=== PATIENT | male | born 1975 | race Caucasian/White ===

== ENCOUNTER 2020-04-22 11:04 | Observation (INO) | payer BC ==
[2020-04-22 12:01] LABS: #Lymphocytes 1.2 thou/uL (1.20-3.40); #Monocytes 0.4 thou/uL (0.11-0.59); #Neutrophils 3.4 thou/uL (1.40-6.50); %Basophils 0.2 % (0.0-1.0); %Eosinophils 0.5 % (0.0-10.0); %Lymphocytes 23.2 % (21.0-51.0); %Monocytes 8.3 % (0.0-10.0); %Neutrophils 67.8 % (42.0-75.0); Hemoglobin 14.3 g/dL (14.0-18.0); Mean Corpuscular Hemoglobin 27.5 pg (27.0-31.0); Mean Corpuscular Volume 85.8 fL (78.0-98.0); Mean Platelet Volume 7.6 fL (7.4-10.4); Platelet Count 158 thou/uL (130-400); RBC Distribution Width 11.7 % (11.5-14.5); Red Blood Cell (RBC) Count 5.22 mill/uL (4.70-6.10)
[2020-04-22] MEDS ORDERED: Ketorolac Tromethamine 30 MG/ML VIAL ONE (12:04)
--- NOTE | 2020-04-22 12:08 | RAD ---
Portable frontal chest radiograph: 04/22/2020 COMPARISON: None HISTORY: Fever FINDINGS: There is a suggestion of a rounded density within the medial left base which may signify an underlying pulmonary nodule, measuring 2.8 cm in transverse dimension. There is elevation of the right hemidiaphragm. No focal consolidation or alveolar edema. IMPRESSION: Findings suspicious for a medial left basilar nodule. PA and lateral imaging of the chest suggested for further assessment. Results called to Dr. Ramos 11:58 AM 04/22/2020
[2020-04-22 12:17] LABS: ALT (SGPT) 26 U/L (8-55); AST (SGOT) 24 U/L (5-34); Albumin 4.1 g/dL (3.5-5.0); Alkaline Phosphatase 36 U/L (40-110); Anion Gap 14 mmol/L (10-20); BUN (Urea Nitrogen) 11 mg/dL (8.9-20.6); Bilirubin, Total 0.4 mg/dL (0.2-1.2); Calc. Creatinine Clearance 0 mL/min (70-130); Calcium 8.9 mg/dL (7.8-10.44); Carbon Dioxide 23 mmol/L (22-29); Chloride 103 mmol/L (98-107); Globulin 3.7 g/dL (2.4-3.5); Glucose 143 mg/dL (70-105); Potassium 4.2 mmol/L (3.5-5.1); Protein, Total 7.8 g/dL (6.0-8.3); Sodium 136 mmol/L (136-145)
[2020-04-22] MEDS ORDERED: Morphine 4 MG/ML VIAL ONE (13:23)
[2020-04-22] MEDS ORDERED: diphenhydrAMINE 50 MG/ML VIAL ONE (13:24)
[2020-04-22] MEDS ORDERED: Metoclopramide HCl 10 MG/2 ML VIAL ONE (13:24)
[2020-04-22] MEDS ORDERED: Metoclopramide 10 MG/10 ML UDCUP ONE (13:24)
--- NOTE | 2020-04-22 13:43 | CT ---
CT BRAIN WITHOUT CONTRAST: HISTORY: Headache, fever, vomiting, stiff neck. Negative for COVID-19. FINDINGS: No evidence of acute infarct, hemorrhage, midline shift, or abnormal extraaxial fluid collections are seen. The ventricular size is normal and the basilar cisterns are patent. The bony calvarium is in tact. The visualized paranasal sinuses and mastoid air cells are well aerated. IMPRESSION: No CT evidence of acute intracranial process. POS: AH
--- NOTE | 2020-04-22 16:08 | RAD ---
Lumbar puncture with fluoroscopic guidance: 04/22/2020 HISTORY: Headache, clinical concern for meningitis FINDINGS: Informed consent obtained prior to the procedure. Security Attendant frontal radiograph demonstrates intact lumbar pedicles. Patient was placed on the fluoroscopic table in the oblique prone position and the skin overlying the L3-4 level was prepped and draped in normal sterile fashion and anesthetized with 1% buffered lidocaine. With intermittent fluoroscopic gu idance, a 22-gauge spinal needle is advanced into the thecal sac and removal of the stylet yields clear cerebrospinal fluid. Opening pressure is normal. Approximately 5-6 cc of clear CSF was obtained and sent to the laboratory for assessment. Needle was removed. Patient tolerated the procedure well. Exposure data: 0.8 minutes of fluoroscopic time, 257.6 mcg/sq m IMPRESSION: Successful lumbar puncture with fluoroscopic guidance as above.
[2020-04-22 16:22] LABS: Color Of CSF Supernatant COLORLESS (Colorless); Tube # 2; Unspun CSF Color COLORLESS (Colorless)
[2020-04-22 16:33] LABS: CSF, Glucose 85 mg/dl (40-70); CSF, Protein 53 mg/dL (15-40)
[2020-04-22] MEDS ORDERED: Magnesium 2 GM/50 ML BAG (IN WATER) ONE (19:47)
[2020-04-22] MEDS ORDERED: methylPREDNISolone Sod Succ/PF 125 MG/2 ML VIAL ONE (19:47)
[2020-04-22] MEDS ORDERED: Ondansetron PF 4 MG/2 ML Vial IVP PRN (20:20)
[2020-04-22] MEDS ORDERED: Calcium Carbonate 500 MG ChewTAB PO PRN (20:20)
[2020-04-22] MEDS ORDERED: HYDROcodone/Acetaminophen 7.5/325 mg Tablet PO PRN (20:20)
[2020-04-22] MEDS ORDERED: Acetaminophen 650 MG Suppository PR PRN (20:20)
[2020-04-22] MEDS ORDERED: Acetaminophen 325 MG TAB PO PRN (20:20)
[2020-04-22] MEDS ORDERED: Morphine 2 MG/ML VIAL SLOW IVP PRN (20:20)
--- NOTE | 2020-04-22 20:24 | PDOC.HHP ---
Hospitalist HPI - History of Present Illness headache fever History of Present Illness: Case of an 44y/o male with a pmhx of DM who comes to hospital due to headache and fever. patient states he was on his usual state of health until about a week ago when he started with headache fever myalgias neck stiffness and nausea. States that today was feeling worse for which decided to come to hospital for evaluation. He is concerned about possibly having meningitis since he had it before in the late 90s while he was in the and states this feels exactly the same. He has been tested for Covid 3 times in the last week and have all been negative. Most recently he was tested on Monday at the respiratory clinic. hospitalist was called for further evaluation and management Hospitalist ROS - Review of Systems All other systems reviewed; all pertinent +/- noted in HPI/Subj Hospitalist History - Past Surgical History Past Surgical History: reports: no pertinent history - Family History Family History: reports: no pertinent history - Social History Smoking Status: Former smoker Alcohol: reports: None Drugs: reports: none Living Situation: With Family - Exam General Appearance: ill appearing Eye: PERRL, anicteric sclera ENT: normocephalic atraumatic, no oropharyngeal lesions Neck: supple, symmetric, no JVD Heart: RRR, no murmur, no gallops Respiratory: CTAB, no wheezes, no rales Gastrointestinal: soft, non-tender, non-distended Extremities: no cyanosis, no clubbing, no edema Skin: normal turgor, no lesions Neurological: cranial nerve grossly intact Musculoskeletal: normal tone, normal strength Psychiatric: normal affect, normal behavior, A&O x 3 Hospitalist Results - Labs Result Diagrams: 04/22/20 11:22 04/22/20 11:22 Lab results: WBC 5.0 thou/uL (4.8-10.8) 04/22/20 11:22 Hgb 14.3 g/dL (14.0-18.0) 04/22/20 11:22 Hct 44.9 % (42.0-52.0) 04/22/20 11:22 MCV 85.8 fL (78.0-98.0) 04/22/20 11:22 Plt Count 158 thou/uL (130-400) 04/22/20 11:22 Neutrophils % 67.8 % (42.0-75.0) 04/22/20 11:22 Sodium 136 mmol/L (136-145) 04/22/20 11:22 Potassium 4.2 mmol/L (3.5-5.1) 04/22/20 11:22 Chloride 103 mmol/L (98-107) 04/22/20 11:22 Carbon Dioxide 23 mmol/L (22-29) 04/22/20 11:22 BUN 11 mg/dL (8.9-20.6) 04/22/20 11:22 Creatinine 1.13 mg/dL (0.7-1.3) 04/22/20 11:22 Glucose 143 mg/dL (70-105) H 04/22/20 11:22 Lactic Acid 1.2 mmol/L (0.5-2.2) 04/22/20 11:22 Calcium 8.9 mg/dL (7.8-10.44) 04/22/20 11:22 Total Bilirubin 0.4 mg/dL (0.2-1.2) 04/22/20 11:22 AST 24 U/L (5-34) 04/22/20 11:22 ALT 26 U/L (8-55) 04/22/20 11:22 Alkaline Phosphatase 36 U/L (40-110) L 04/22/20 11:22 Serum Total Protein 7.8 g/dL (6.0-8.3) 04/22/20 11:22 Albumin 4.1 g/dL (3.5-5.0) 04/22/20 11:22 Hospitalist H&P A/P - Problem (1) Meningitis Code(s): G03.9 - MENINGITIS, UNSPECIFIED Status: Acute (2) Diabetes Code(s): E11.9 - TYPE 2 DIABETES MELLITUS WITHOUT COMPLICATIONS Status: Acute (3) Nausea & vomiting Code(s): R11.2 - NAUSEA WITH VOMITING, UNSPECIFIED Status: Acute (4) Headache Code(s): R51.9 - HEADACHE, UNSPECIFIED Status: Acute - Plan Plan: 44y/o male w the state pmx who present to hospital for evaluation and meningitis meningitis - has symptoms concerning for meningits - LP was attemted at the ED, were unsuccesful, LP was done by IR - when i was notified of admission LP results were not available, ED personal stated they were delayed sending cultures and labs of LP after it was taken - insufficent information at this time to differentiate between viral vs bacterial - will cover with rocephin + vanc + acyclovir - ID consulted - f/u LP results - f/u cultures - pain management DM - ac + ss n/v - symptomatic tx prn
[2020-04-22 20:53] LABS: CSF Source CSF; Clarity Clear (Clear); Tube # 4
[2020-04-22] MEDS ORDERED: cefTRIAXone\\ROCEPHIN 2 GM VIAL ONE (20:53)
[2020-04-22 22:13] VITALS: BMI 45.9
[2020-04-22] MEDS: HYDROcodone/Acetaminophen 7.5/325 mg Tablet PO PRN (22:24)
[2020-04-23] MEDS ORDERED: Dextrose 5% in Water 1,000 ML IV PRN (00:16)
[2020-04-23] MEDS ORDERED: Dextrose 50% Abboject 50 ML SYRINGE SLOW IVP PRN (00:16)
[2020-04-23] MEDS: Acyclovir Sodium 730 MG in Sodium Chloride 0.9% 250 ML 250 ML IVPB SCH ×3 (00:28→16:00)
[2020-04-23] MEDS: HYDROcodone/Acetaminophen 7.5/325 mg Tablet PO PRN ×2 (05:48→16:19)
[2020-04-23 06:01] LABS: ALT (SGPT) 26 U/L (8-55); AST (SGOT) 23 U/L (5-34); Albumin 3.6 g/dL (3.5-5.0); Alkaline Phosphatase 29 U/L (40-110); Anion Gap 13 mmol/L (10-20); BUN (Urea Nitrogen) 11 mg/dL (8.9-20.6); Bilirubin, Total 0.3 mg/dL (0.2-1.2); Calc. Creatinine Clearance 206 mL/min (70-130); Carbon Dioxide 20 mmol/L (22-29); Chloride 107 mmol/L (98-107); Globulin 3.1 g/dL (2.4-3.5); Glucose 258 mg/dL (70-105); Potassium 4.8 mmol/L (3.5-5.1); Protein, Total 6.7 g/dL (6.0-8.3); Sodium 135 mmol/L (136-145)
[2020-04-23 06:07] LABS: Band 10 % (5-11); Hemoglobin 13.1 g/dL (14.0-18.0); Hypochromia SLIGHT = 6-15 cells (100X) (0-5/hpf); Lymphocytes 12 % (21-51); MDiff Complete? YES; Mean Corpuscular HGB CONC 32.5 g/dL (32.0-36.0); Mean Corpuscular Hemoglobin 28.3 pg (27.0-31.0); Mean Platelet Volume 7.7 fL (7.4-10.4); Neutrophil 76 % (42-75); Platelet Count 140 thou/uL (130-400); Platelet Morphology Comment Appears Adequate; RBC Distribution Width 11.6 % (11.5-14.5); Reactive Lymphocytes 2 % (0-10); Red Blood Cell (RBC) Count 4.62 mill/uL (4.70-6.10); White Blood Cell (WBC) Count 2.9 thou/uL (4.8-10.8)
[2020-04-23] MEDS: HumaLOG 300 UNITS/3 ML VIAL SC PRN ×2 (06:33→11:47)
[2020-04-23] MEDS ORDERED: Enoxaparin Sodium 40 MG/0.4 ML SYRINGE SC SCH (09:00)
[2020-04-23] MEDS: Ondansetron ODT 4 MG TAB PO PRN ×2 (09:03→16:48)
[2020-04-23 16:18] VITALS: BP 118/75; TEMP 98
[2020-04-23 18:13] LABS: SARS-CoV-2 IgG Ab Non-Reactive (NonReactive); SARS-CoV-2 IgG Index 0.02 S/CO (< 1.40)
--- NOTE | 2020-04-23 18:42 | CON ---
DATE OF CONSULTATION: 04/23/2020 REASON FOR CONSULTATION: Headaches. HISTORY OF PRESENT ILLNESS: A 44-year-old with history of type 2 diabetes, obesity, and a 7-day history of fever, myalgias, and headaches. He has been tested 3 times for SARS-CoV-2 with the 1st one was a rapid test, which was negative; the other 2 were PCRs, both negative. The more recent one was on the . He had a spinal tap, which was fairly normal except for mild elevation of protein. Still has a mild headache in the left periorbital region. Cough intermittently and reportedly had some drops in his saturations while he was in the emergency room earlier, a little bit anorectic. No abdominal pain or diarrhea. No genitourinary symptoms. No joint symptoms. No skin disorder. No neurological symptoms. PAST MEDICAL HISTORY: 1. Type 2 diabetes. 2. Obesity. ALLERGIES: NONE. MEDICATIONS: 1. Metformin. 2. Zofran. SOCIAL HISTORY: Former smoker. . He works in the [place] [employer] [facility]. CURRENT MEDICATIONS: 1. Acyclovir. 2. Ceftriaxone. 3. Enoxaparin. 4. Ondansetron. 5. Vancomycin. PHYSICAL EXAMINATION: VITAL SIGNS: T-max 101.7 and he is now 97.8, heart rate 71, respiratory rate 18, and O2 saturation 94 on room air and he was 95 on room air when examined him. GENERAL: He does not appear in distress, a little bit affected by his illness, but is alert. SKIN: Normal. There is no lymphadenopathy. HEENT: Ocular movements conjugate. Sclerae white. Pupils are equal. Oral cavity normal. NECK: Supple. LUNGS: Symmetric. Clear breath sounds. HEART: S1 and S2. Regular rate. ABDOMEN: Soft, not distended or tender. No ascites. No bladder distention. EXTREMITIES: No joint inflammatory activity. Moves extremities equally. NEUROLOGIC: Cognitive function appears to be intact. LABORATORY DATA: CSF with 18 rbc's, 0 wbc, protein 53. White cell count 5.0 and 2.9, lymphocytopenia. Creatinine 0.96 and sodium 135. Liver profile normal. Albumin 3.6. Brain CT showed no acute intracranial process. Chest x-ray, possible nodule in the left basilar region. ASSESSMENT: New onset of fever for the past 7 days with myalgias and headaches, fairly normal CSF except for mild elevation in protein, cough, and some intermittent drops in the O2 saturations. DISCUSSION: The differential diagnosis includes SARS-CoV-2 infection despite 2 negative results. Meningitis has been effectively ruled out. The small nodule in the lung on chest x-ray needs to be further evaluated down the road with a CT scan. I would at right now advise checking his antibody levels before discharge and then follow up the results tomorrow for counseling the patient regarding measures of protection to prevent further transmission of the virus if it turns out to have positive antibodies, so in the meantime, he would have to remain quarantine until antibody levels are back. Since he is at around 7 days, he may not have any formed antibodies yet. Other possibilities are less likely. Job ID: [id number]
[2020-04-23] MEDS ORDERED: cefTRIAXone\\ROCEPHIN 2 GM in Sodium Chloride 0.9% 100 ML IVPB SCH (20:00)
--- NOTE | 2020-04-23 22:02 | DIS ---
DATE OF ADMISSION: 04/22/2020 DATE OF DISCHARGE: 04/23/2020 DISCHARGE DIAGNOSES: 1. Viral syndrome. 2. Headache. 3. Nausea and vomiting, improved. 4. Diabetes mellitus type 2. CONSULTATIONS: Dr. Gresham with Infectious Disease Service. PERTINENT LABORATORY AND X-RAY FINDINGS: Creatinine ranged between 0.96 to 1.13. Lactic acid level 1.2. CBC showed a white blood cell count ranging between 2.9 to 5.0, hemoglobin ranged between 13.1 to 14.3. CSF sample dated 04/22/2020, showed 18 rbc's and 0 wbc's. Glucose 85, total protein 53. Blood cultures x2 dated 04/22/2020, showed no growth to date. CSF culture dated 04/22/2020, showed no growth at [address] of the brain without contrast dated 04/22/2020, showed no acute intracranial process. Portable chest x-ray dated 04/22/2020, showed questionable medial left basilar nodule. Recommend outpatient followup. HOSPITAL COURSE: The patient was observed on the medical floor after initially presenting with fever and headache with associated nausea and vomiting. The patient underwent general evaluation including CSF evaluation after concern for potential meningitis with negative CSF results. The patient did receive empiric IV Rocephin and vancomycin in addition to acyclovir, pending CSF evaluation. The patient also underwent COVID-19 testing, which was negative. The patient received general supportive management including IV fluids and antiemetics with overall stabilization and improvement in symptoms. CT imaging of the brain was performed showing no acute intracranial process and the patient was ruled out for bacterial meningitis. Likely, the patient's presentation is secondary to viral syndrome with recommendations for general supportive management. I have examined the patient at the time of discharge and discussed followup instructions. The patient verbalizes understanding and agreement, ready for discharge on 04/23/2020. DISCHARGE MEDICATIONS: 1. Toradol 10 mg p.o. q.6 hours p.r.n. headache and fever. 2. Metformin 500 mg p.o. b.i.d. 3. Zofran 4 mg p.o. q.6 hours p.r.n. FOLLOWUP: The patient may follow up with his primary care provider within 7 days of discharge. CONDITION ON DISCHARGE: Stable. ACTIVITY: Ad-carlos. DIET: ADA. CODE STATUS: Full. DISPOSITION: To home, 04/23/2020. Job ID: [id number]
--- NOTE | 2020-04-25 11:11 | EKG ---
Test Reason : Blood Pressure : / mmHG Vent. Rate : 095 BPM Atrial Rate : 095 BPM P-R Int : 148 ms QRS Dur : 092 ms QT Int : 348 ms P-R-T Axes : 045 032 031 degrees QTc Int : 437 ms Normal sinus rhythm Possible Left atrial enlargement Borderline ECG Confirmed by BALDEMAR VIRGEN DO ([id number]), editor managing director KAYLEE KIM ([id number] on 04/25/2020 11:11:34 AM Referred By: Confirmed By:BALDEMAR VIRGEN DO
== END 2020-04-23 17:20 | disposition home or self-care (01) ==
LOC: ERS 11:04 → SJJU 20:20
PROVIDERS: ADMIT Internal Medicine; ATTEND Internal Medicine
PROC: 009U3ZX Drainage of Spinal Canal, Percutaneous Approach, Diagnostic (ICD-10-PCS; principal; 2020-04-23)
DX: B34.9 Viral infection, unspecified (principal); E11.9 Type 2 diabetes mellitus without complications; E66.9 Obesity, unspecified; R91.1 Solitary pulmonary nodule; Z68.42 Body mass index [BMI] 45.0-49.9, adult; Z79.84 Long term (current) use of oral hypoglycemic drugs; Z87.891 Personal history of nicotine dependence
CPT/HCPCS: 36415; 36416; 62270; 70450; 71045; 80053; 82945; 83605; 84157; 85007; 85025; 85027; 86769; 87040; 87070; 87205; 89051; 90471; 90732; 93005; 94760; 96365; 96366; 96367; 96372; 96375; G0009; G0378; J0133; J0696; J1200; J1650; J1885; J2270; J2765; J2930; J3370; J3475; J7030; J7050; Q0162

== ENCOUNTER 2020-04-24 09:53 | Emergency (ER) | payer BC ==
[2020-04-24] MEDS ORDERED: Fentanyl 100 MCG/2 ML VIAL ONE (10:43)
[2020-04-24] MEDS ORDERED: Metoclopramide HCl 10 MG/2 ML VIAL ONE (10:43)
[2020-04-24] MEDS ORDERED: diphenhydrAMINE 50 MG/ML VIAL ONE (10:43)
[2020-04-24] MEDS ORDERED: Ketorolac Tromethamine 30 MG/ML VIAL ONE (10:43)
[2020-04-24] MEDS ORDERED: Dexamethasone 4 mg/ml Vial ONE (10:43)
[2020-04-24 10:51] LABS: #Monocytes 0.4 thou/uL (0.11-0.59); #Neutrophils 7.4 thou/uL (1.40-6.50); %Eosinophils 0.2 % (0.0-10.0); %Lymphocytes 20.3 % (21.0-51.0); %Monocytes 3.7 % (0.0-10.0); %Neutrophils 75.7 % (42.0-75.0); Hemoglobin 14.4 g/dL (14.0-18.0); Mean Corpuscular HGB CONC 33.7 g/dL (32.0-36.0); Mean Corpuscular Hemoglobin 29.2 pg (27.0-31.0); Mean Corpuscular Volume 86.8 fL (78.0-98.0); Mean Platelet Volume 8.4 fL (7.4-10.4); Platelet Count 157 thou/uL (130-400); RBC Distribution Width 11.8 % (11.5-14.5); Red Blood Cell (RBC) Count 4.92 mill/uL (4.70-6.10); White Blood Cell (WBC) Count 9.8 thou/uL (4.8-10.8)
[2020-04-24] MEDS ORDERED: Iopamidol-370 76% 500 ML 1 ML ONE (11:26)
--- NOTE | 2020-04-24 12:01 | CT ---
EXAM: CT angiogram of the head including 3-D rendering: HISTORY: Headache COMPARISON: Noncontrast brain CT, 04/22/2020 FINDINGS: There is adequate opacification of the intracranial arteries. Visualized vertebral and basilar arteries: Very small hypoplastic right vertebral artery mostly feedi ng the right PICA. Right and left intracranial internal carotid arteries: Unremarkable. Right and left Anterior and posterior cerebral arteries: Unremarkable. Right and left middle cerebral arteries: Unremarkable. No evidence for an M1 segment occlusion. No evidence for intracranial aneurysm. All stenosis measurements use Nascet Criteria. IMPRESSION: Small hypoplastic right vertebral artery. No convincing evidence for intracranial aneurysm.
== END 2020-04-24 12:54 | disposition home or self-care (01) ==
LOC: ERS 09:53
DX: R51.9 Headache, unspecified (principal); B34.9 Viral infection, unspecified; E11.9 Type 2 diabetes mellitus without complications; E66.9 Obesity, unspecified; Z79.899 Other long term (current) drug therapy
CPT/HCPCS: 36415; 70496; 83605; 85025; 87040; 96365; 96375; J1100; J1200; J1885; J2765; J3010

== ENCOUNTER 2020-04-25 04:07 | Emergency (ER) | payer BC ==
[2020-04-25] MEDS ORDERED: Ondansetron PF 4 MG/2 ML Vial ONE (04:56)
[2020-04-25] MEDS ORDERED: Acetaminophen 500 MG TAB ONE ×2 (04:56→05:49)
[2020-04-25] MEDS ORDERED: Piperacillin/Tazobactam 4.5 GM VIAL ONE (04:56)
[2020-04-25 05:18] LABS: Bacteria/HPF None Seen HPF (None Seen); Bilirubin Negative (Negative); Blood, Urine Negative (Negative); Clarity Clear (Clear); Glucose, Urine (Dipstick) Normal (Negative); Ketone, Urine Negative (Negative); Leukocyte Negative Leu/uL (Negative); Nitrite Negative (Negative); Protein, Urine (Dipstick) 30 mg/dL (Neg-Trace); RBC/HPF 0-3 HPF (0-3); Specific Gravity, Urine 1.035 (1.002-1.036); Squamous Epithelial None Seen HPF (0-3); Urobilinogen 6 mg/dL (Less than 2); pH, Urine 6.5 (5.0-9.0)
[2020-04-25 05:50] LABS: #Lymphocytes 1.2 thou/uL (1.20-3.40); #Monocytes 0.4 thou/uL (0.11-0.59); #Neutrophils 9.3 thou/uL (1.40-6.50); %Eosinophils 0.1 % (0.0-10.0); %Lymphocytes 10.6 % (21.0-51.0); %Neutrophils 85.3 % (42.0-75.0); Mean Corpuscular HGB CONC 32.6 g/dL (32.0-36.0); Mean Corpuscular Hemoglobin 28.5 pg (27.0-31.0); Mean Corpuscular Volume 87.6 fL (78.0-98.0); Mean Platelet Volume 7.5 fL (7.4-10.4); Platelet Count 170 thou/uL (130-400); RBC Distribution Width 11.8 % (11.5-14.5); Red Blood Cell (RBC) Count 4.21 mill/uL (4.70-6.10)
[2020-04-25 06:10] LABS: ALT (SGPT) 58 U/L (8-55); AST (SGOT) 40 U/L (5-34); Albumin 3.6 g/dL (3.5-5.0); Alkaline Phosphatase 26 U/L (40-110); Anion Gap 14 mmol/L (10-20); BUN (Urea Nitrogen) 11 mg/dL (8.9-20.6); Bilirubin, Total 0.4 mg/dL (0.2-1.2); Calc. Creatinine Clearance 0 mL/min (70-130); Calcium 7.9 mg/dL (7.8-10.44); Carbon Dioxide 23 mmol/L (22-29); Chloride 105 mmol/L (98-107); Globulin 2.9 g/dL (2.4-3.5); Glucose 139 mg/dL (70-105); Protein, Total 6.5 g/dL (6.0-8.3); Sodium 138 mmol/L (136-145)
[2020-04-25] MEDS ORDERED: Vancomycin 1 GM/200 ML BAG ONE (06:35)
[2020-04-25] MEDS ORDERED: Morphine 4 MG/ML VIAL ONE (07:37)
--- NOTE | 2020-04-25 07:39 | CT ---
PRELIMINARY REPORT/[facility]/EMERGENCY AFTER HOURS PROCEDURE: EXAM:CT Chest with Intravenous Contrast. CLINICAL HISTORY: 44-year-old male presenting with headache and fever for 10 days. Patient has been s een multiple times in the past. Patient continues to have headache and fever despite taking Tylenol and ibuprofen. Patient is also having vomiting. Patient was discharged from the hospital 3 days ago. Patient was also seen here yesterday. Patient continues to have fevers around 100.5-1 01. Patient denies any recent travel, camping, sexual risk factors, drug use. Patient had a lumbar puncture that had elevated protein and glucose but no white blood cells. Patient has been on several different antibiotics. patient is suspected of having Covid despite having 2 - PCR's and a negative antibody te st. Patient is also stating that he is having cough shortness of breath and coughing up blood. TECHNIQUE: Axial computed tomography images of the chest with intravenous contrast. CONTRAST: With; ISOVUE 370,100mL COMPARISON: None provided. FINDINGS: LUNGS: Widespread groundglass opacities noted throughout the lungs, some quite nodular in their appea loni but certainly compatible with Covid pneumonia. PLEURAL SPACES: Trace pleural effusion. No pneumothorax. HEART AND MEDIASTINUM: No cardiomegaly. No significant pericardial effusion. LYMPH NODES: No lymphadenopathy. BONES: No focal osseous abnormality or acute fracture. CHEST WALL AND UPPER ABDOMEN: The upper abdominal solid organs are unremarkable. The chest wall is unremarkable. IMPRESSION: Findings most compatible with an atypical pneumonia, likely Covid pneumonia as clinically suspected despite multiple negative Covid tests. Given this unusual clinical setting, follow-up chest CT is recommended on resolution of the patient's acute symptoms to ensure resolution of the abn ormal CT findings. ELECTRONICALLY SIGNED BY: Jigar Sharp MD Apr 25, 2020 6:37:15 AM COUNSELOR AID FINAL REPORT CT CHEST WITH IV CONTRAST: DATE: 04/25/2020. TIME: Performed on emergency basis at 0622 hours. HISTORY: Cough. Dyspnea. FINDINGS: Agree with the pulmonary report by Dr. Sharp from direct radiology. Multifocal bilateral infiltrates w ith the appearance of COVID pneumonitis. Dystrophic calcifications of the thyroid gland noted. Transcribed Date/Time: 04/25/2020 7:46 AM
[2020-04-25 07:45] LABS: SARS-CoV-2 NAA Rapid Test Not Detected (NotDetected)
--- NOTE | 2020-04-25 09:37 | RAD ---
Chest one view HISTORY: Cough and fever. COMPARISON: 04/22/2020. FINDINGS: Cardiac silhouette is magnified by projection. Pulmonary vasculature upper limits of normal . Subtle ill-defined patchy areas of groundglass opacity are scattered throughout each lung. Mediastinum is midline. No evidence of pneumothorax. IMPRESSION : Patchy bilateral infiltrates. Correlate for COVID pneumonitis.
[2020-04-25] MEDS ORDERED: Iopamidol-370 76% 500 ML 1 ML ONE (11:38)
== END 2020-04-25 08:37 | disposition short-term general hospital (02) ==
LOC: ERS 04:07
DX: J18.9 Pneumonia, unspecified organism (principal); Z20.828 Contact with and (suspected) exposure to other viral communicable diseases; E11.9 Type 2 diabetes mellitus without complications; E66.9 Obesity, unspecified; Z87.891 Personal history of nicotine dependence; Z79.84 Long term (current) use of oral hypoglycemic drugs; Z79.899 Other long term (current) drug therapy
CPT/HCPCS: 0240U; 71045; 71260; 80053; 81003; 81015; 83605; 85025; 87040; 87086; J2270; J2405; J2543; J3370

== ENCOUNTER 2022-05-15 11:51 | Emergency (ER) | payer BC, OTHER ==
[2022-05-15 13:30] LABS: HIV (1/2) Antibody/Antigen Non-Reactive (NonReactive); Hep C IgG Ab Non-Reactive (NonReactive)
[2022-05-15 14:49] LABS: Hep B Surf AB Reactive (NonReactive)
[2022-05-15 14:50] LABS: HBSAB Concentration Greater than 1000.00 mIU/mL
== END 2022-05-15 13:07 | disposition home or self-care (01) ==
LOC: ERS 11:51
DX: Z77.21 Contact with and (suspected) exposure to potentially hazardous body fluids (principal); E66.9 Obesity, unspecified; E11.9 Type 2 diabetes mellitus without complications; I10 Essential (primary) hypertension; Z79.84 Long term (current) use of oral hypoglycemic drugs; Z79.899 Other long term (current) drug therapy
CPT/HCPCS: 36415; 99283

== ENCOUNTER 2023-09-27 16:00 | Outpatient (CLI) | payer BC | END 2023-09-27 16:01 | disposition home or self-care (01) | LOC: SLEEPLAB 16:00 | PROVIDERS: ATTEND Otolaryngology Otolaryngic Allergy | DX: G47.33 Obstructive sleep apnea (adult) (pediatric) (principal) | CPT/HCPCS: 95810 ==

== ENCOUNTER 2023-10-03 13:25 | Outpatient (CLI) | payer BC | END 2023-10-03 13:26 | disposition home or self-care (01) | LOC: BICRAD 13:25 | PROVIDERS: ATTEND Nurse Practitioner Primary Care | DX: M25.511 Pain in right shoulder (principal) ==